=== PATIENT | female | born 1985 | race Two or more races ===

== ENCOUNTER 2023-01-03 01:28 | Inpatient (IN) | payer BC ==
[2023-01-03] MEDS ORDERED: Sodium Chloride 0.9% 10 ML Syringe FLUSH PRN (19:15)
[2023-01-03] MEDS ORDERED: Lidocaine 1% 50 ML MDV INJECT ONE (19:15)
[2023-01-03] MEDS ORDERED: Nalbuphine 10 MG/0.5 ML Syringe IVPUSH PRN (19:15)
[2023-01-03 19:46] LABS: BASOPHILS PERCENT AUTO 0.4 % (0.0-1.0); EOSINOPHILS ABSOLUTE AUTO 0.1 K/mm3 (0.0-0.4); EOSINOPHILS PERCENT AUTO 0.9 % (0.0-6.0); HEMATOCRIT 35.1 % (37.0-47.0); HEMOGLOBIN 11.8 gm/dl (12.0-16.0); IMMATURE GRAN ABSOLUTE AUTO 0.03 K/mm3 (0.00-0.05); IMMATURE GRAN PERCENT AUTO 0.4 % (0.0-0.4); LYMPHOCYTES ABSOLUTE AUTO 1.6 K/mm3 (1.0-4.8); LYMPHOCYTES PERCENT AUTO 20.2 % (24.0-44.0); MEAN CORPUSCULAR HEMOGLOBIN 31.1 pg (28.0-32.0); MEAN CORPUSCULAR HGB CONC 33.6 g/dl (32.0-36.0); MEAN CORPUSCULAR VOLUME 92.4 fl (83.0-99.0); MONOCYTES ABSOLUTE AUTO 0.6 K/mm3 (0.0-0.8); MONOCYTES PERCENT AUTO 7.9 % (0.0-8.0); NEUTROPHILS ABSOLUTE AUTO 5.7 K/mm3 (1.8-7.7); NEUTROPHILS PERCENT AUTO 70.2 % (41.0-71.0); PLATELET COUNT,PLT 209 K/mm3 (150-400); WHITE BLOOD CELL COUNT,WBC 8.06 K/mm3 (3.9-11.3)
[2023-01-03] MEDS ORDERED: Oxytocin/Lactated Ringers 10 UNIT/1,000 ML BAG IV SCH ×2 (20:30)
[2023-01-03] MEDS: Lactated Ringers 1,000 ML IV SCH ×2 (20:49→23:17)
[2023-01-03] MEDS ORDERED: Sodium Chloride 0.9% 10 ML Syringe FLUSH SCH (21:00)
[2023-01-03] MEDS ORDERED: Ondansetron 4 MG/2 ML SDV IVPUSH PRN (22:52)
[2023-01-03] MEDS ORDERED: fentaNYL 100 MCG/2 ML SDV ONE (23:29)
[2023-01-03] MEDS ORDERED: ePHEDrine 50 MG/ML SDV IVPUSH PRN (23:46)
[2023-01-03] MEDS ORDERED: Bupivacaine/fentaNYL/NS 100 ML Bag EPIDUR PRN (23:46)
[2023-01-03] MEDS ORDERED: diphenhydrAMINE 50 MG/ML SDV IVPUSH PRN (23:46)
[2023-01-03] MEDS ORDERED: fentaNYL 100 MCG/2 ML SDV EPIDUR PRN (23:46)
[2023-01-04] MEDS ORDERED: Bupivacaine 0.25% 10 ML SDV ONE
[2023-01-04] MEDS ORDERED: Witch Hazel Medicated Pads 40/Jar TOP PRN (03:13)
[2023-01-04] MEDS ORDERED: Benzocaine/Menthol 20%-0.5% Spray 78 GM Cannister TOP PRN (03:13)
[2023-01-04] MEDS ORDERED: Ibuprofen 600 MG Tab PO PRN (03:13)
[2023-01-04] MEDS ORDERED: Acetaminophen 325 MG Tab PO PRN (03:13)
== END 2023-01-05 15:00 | disposition home or self-care (01) | DRG 560 ==
LOC: JD.OB 01:28 → OBSVTOIN 01-04 01:28 → JD.OB 01-04 01:29
PROVIDERS: ADMIT Obstetrics & Gynecology; ATTEND Obstetrics & Gynecology
PROC: 10E0XZZ Delivery of Products of Conception, External Approach (ICD-10-PCS; principal; 2023-01-04)
PROC: 10907ZC Drainage of Amniotic Fluid, Therapeutic from Products of Conception, Via Natural or Artificial Opening (ICD-10-PCS; 2023-01-04)
PROC: 3E033VJ Introduction of Other Hormone into Peripheral Vein, Percutaneous Approach (ICD-10-PCS; 2023-01-04)
PROC: 3E0R3BZ Introduction of Anesthetic Agent into Spinal Canal, Percutaneous Approach (ICD-10-PCS; 2023-01-04)
PROC: 00HU33Z Insertion of Infusion Device into Spinal Canal, Percutaneous Approach (ICD-10-PCS; 2023-01-04)
PROC: 0UQG7ZZ Repair Vagina, Via Natural or Artificial Opening (ICD-10-PCS; 2023-01-04)
DX: O71.4 Obstetric high vaginal laceration alone (principal); Z37.0 Single live birth; Z3A.39 39 weeks gestation of pregnancy
CPT/HCPCS: 36415; 51701; 59025; 59409; 85025; 86592; 86850; 86900; 86901; A9270-GY; J2300; J2405; J2590; J3010; J3490; J7120

== ENCOUNTER 2024-05-22 15:25 | Inpatient (IN) | payer BC ==
[~2024-05-22 15:25] MED LIST: Bupivacaine 0.25% 10 ML SDV ONE
[2024-05-22] MEDS ORDERED: Ondansetron 4 MG/2 ML SDV IVPUSH PRN (15:40)
[2024-05-22] MEDS ORDERED: Nalbuphine 10 MG/1 ML Vial IVPUSH PRN (15:40)
[2024-05-22] MEDS ORDERED: Lidocaine 1% 50 ML MDV INJECT PRN (15:40)
[2024-05-22] MEDS ORDERED: Sodium Chloride 0.9% 10 ML Syringe FLUSH PRN (15:40)
[2024-05-22 15:56] LABS: BASOPHILS PERCENT AUTO 0.2 % (0.0-1.0); EOSINOPHILS ABSOLUTE AUTO 0.1 K/mm3 (0.0-0.4); EOSINOPHILS PERCENT AUTO 0.6 % (0.0-6.0); HEMATOCRIT 34.7 % (37.0-47.0); HEMOGLOBIN 11.2 gm/dl (12.0-16.0); IMMATURE GRAN ABSOLUTE AUTO 0.05 K/mm3 (0.00-0.05); IMMATURE GRAN PERCENT AUTO 0.5 % (0.0-0.4); LYMPHOCYTES ABSOLUTE AUTO 1.6 K/mm3 (1.0-4.8); LYMPHOCYTES PERCENT AUTO 14.6 % (24.0-44.0); MEAN CORPUSCULAR HEMOGLOBIN 29.5 pg (28.0-32.0); MEAN CORPUSCULAR HGB CONC 32.3 g/dl (32.0-36.0); MEAN CORPUSCULAR VOLUME 91.3 fl (83.0-99.0); MEAN PLATELET VOLUME 9.7 fl (9.4-12.3); MONOCYTES ABSOLUTE AUTO 0.6 K/mm3 (0.0-0.8); MONOCYTES PERCENT AUTO 5.2 % (0.0-8.0); NEUTROPHILS ABSOLUTE AUTO 8.6 K/mm3 (1.8-7.7); NEUTROPHILS PERCENT AUTO 78.9 % (41.0-71.0); PLATELET COUNT,PLT 261 K/mm3 (150-400); WHITE BLOOD CELL COUNT,WBC 10.86 K/mm3 (3.9-11.3)
[2024-05-22] MEDS: Lactated Ringers 1,000 ML IV SCH (16:05)
[2024-05-22] MEDS ORDERED: ePHEDrine 50 MG/ML SDV IVPUSH PRN (16:57)
[2024-05-22] MEDS ORDERED: diphenhydrAMINE 50 MG/ML SDV IVPUSH PRN (16:57)
[2024-05-22] MEDS: Bupivacaine/fentaNYL/NS 100 ML Bag EPIDUR PRN (17:19)
[2024-05-22] MEDS: fentaNYL 100 MCG/2 ML SDV EPIDUR PRN (17:48)
[2024-05-22] MEDS: Oxytocin/0.9 % Sodium Chloride 30 UNIT/500 ML BAG IV SCH (19:21)
[2024-05-22] MEDS ORDERED: Acetaminophen 325 MG Tab PO PRN (21:26)
[2024-05-22] MEDS: Witch Hazel Medicated Pads 40/Jar TOP PRN (22:00)
[2024-05-22] MEDS: Benzocaine/Menthol 20%-0.5% Spray 78 GM Cannister TOP PRN (22:00)
[2024-05-22] MEDS: Sodium Chloride 0.9% 10 ML Syringe FLUSH SCH (22:50)
[2024-05-23] MEDS: Ibuprofen 600 MG Tab PO SCH (00:29)
[2024-05-24] MEDS: Ibuprofen 600 MG Tab PO SCH (02:48)
== END 2024-05-24 09:45 | disposition home or self-care (01) | DRG 560 ==
LOC: JD.OBCHECK 15:25 → JD.OB 15:31 → JD.OBCHECK 15:39 → JD.OB 15:40 → OBSVTOIN 19:21 → JD.OB 19:22
PROVIDERS: ADMIT Obstetrics & Gynecology; ATTEND Obstetrics & Gynecology
PROC: 10E0XZZ Delivery of Products of Conception, External Approach (ICD-10-PCS; principal; 2024-05-22)
PROC: 10907ZC Drainage of Amniotic Fluid, Therapeutic from Products of Conception, Via Natural or Artificial Opening (ICD-10-PCS; 2024-05-22)
PROC: 3E0R3BZ Introduction of Anesthetic Agent into Spinal Canal, Percutaneous Approach (ICD-10-PCS; 2024-05-22)
PROC: 00HU33Z Insertion of Infusion Device into Spinal Canal, Percutaneous Approach (ICD-10-PCS; 2024-05-22)
DX: O80 Encounter for full-term uncomplicated delivery (principal); Z37.0 Single live birth; Z3A.38 38 weeks gestation of pregnancy
CPT/HCPCS: 36415; 51701; 59025; 59409; 85025; 86592; A9270-GY; J0665; J3010; J3490; J7120; J7999